=== PATIENT | female | born 1955 | race Hispanic/Latino ===

== ENCOUNTER 2017-06-14 09:11 | Day surgery (SDC) | payer MEDICARE, SELFPAY ==
[2017-06-14 10:27] VITALS: BMI 35.3
[2017-06-14] MEDS ORDERED: Lactated Ringer's 500 ML IV ONE (10:29)
[2017-06-14] MEDS ORDERED: Propofol 10 mg/ml Inj (20 ML) ONE (10:55)
[2017-06-14 11:22] VITALS: TEMP 96.8
[2017-06-14 11:45] VITALS: BP 107/59; PULSE 57; RESP 14; O2SAT 100
== END 2017-06-14 11:53 | disposition home or self-care (01) ==
LOC: H.ENDO 09:11
PROVIDERS: ATTEND Internal Medicine Gastroenterology
DX: K29.50 Unspecified chronic gastritis without bleeding (principal); B96.81 Helicobacter pylori [H. pylori] as the cause of diseases classified elsewhere; K64.8 Other hemorrhoids; K20.9 Esophagitis, unspecified; Z87.11 Personal history of peptic ulcer disease; K31.9 Disease of stomach and duodenum, unspecified; I10 Essential (primary) hypertension; Z12.11 Encounter for screening for malignant neoplasm of colon; J44.9 Chronic obstructive pulmonary disease, unspecified; E66.9 Obesity, unspecified; Z80.0 Family history of malignant neoplasm of digestive organs; Z80.8 Family history of malignant neoplasm of other organs or systems; Z80.49 Family history of malignant neoplasm of other genital organs; Z87.19 Personal history of other diseases of the digestive system; Z68.35 Body mass index [BMI] 35.0-35.9, adult
CPT/HCPCS: 43239; 45378; 88305; J2001; J2704; J7120